=== PATIENT | female | born 1950 | race Caucasian/White ===

== ENCOUNTER 2019-11-06 08:50 | Observation (INO) ==
[~2019-11-06 08:50] MED LIST: Bacitracin 50,000 UNIT, Polymyxin B Sulfate 500,000 UNIT, Sodium Chloride IRRigation 1,... IR ONE
[2019-11-06] MEDS ORDERED: Albuterol 2.5 MG/3 ML NEBULIZER IH PRN (09:20)
[2019-11-06] MEDS ORDERED: CeFAZolin Syr 2,000MG/20 ML 2,000 MG/20 ML SYRINGE IVPB ONE (09:20)
[2019-11-06] MEDS ORDERED: Ringers Solution, Lactated 1,000 ML IVC SCH ×2 (09:30→13:12)
[2019-11-06] MEDS ORDERED: Famotidine 20 MG/2 ML VIAL IVP ONE (09:34)
[2019-11-06] MEDS ORDERED: *HR* Methadone 5 MG TABLET PO ONE (09:34)
[2019-11-06] MEDS ORDERED: Acetaminophen IV 1,000 MG/100 ML INFUS..BTL IVPB ONE (09:35)
[2019-11-06] MEDS ORDERED: *HR* Methadone 10 MG TABLET PO ONE (09:41)
[2019-11-06] MEDS ORDERED: Dexamethasone 4 MG/ML VIAL ONE (09:57)
[2019-11-06] MEDS ORDERED: Ondansetron 4 MG/2 ML VIAL ONE (09:57)
[2019-11-06] MEDS ORDERED: *HR* FentaNYL (PF) 100 MCG/2 ML VIAL ONE (09:57)
[2019-11-06] MEDS ORDERED: Lidocaine -MPF 2% 2 ML VIAL ONE (09:57)
[2019-11-06] MEDS ORDERED: *HR* Rocuronium Bromide 50 MG/5 ML VIAL ONE (09:57)
[2019-11-06] MEDS ORDERED: *HR* Succinylcholine 200 MG/10 ML VIAL IVP ONE (09:57)
[2019-11-06] MEDS ORDERED: *HR* Remifentanil 1 MG VIAL IVP ONE (09:58)
[2019-11-06] MEDS ORDERED: Lidocaine HCL 4 ML Topical Solution (Laryng-O-Jet Kit Sterile Pak) TP ONE (09:58)
[2019-11-06] MEDS ORDERED: *HR* Propofol 200 MG/20 ML VIAL IVP ONE (09:58)
[2019-11-06] MEDS ORDERED: *HR* Midazolam HCl 2 MG/2 ML VIAL ONE (09:58)
[2019-11-06] MEDS ORDERED: *HR* Promethazine 25 MG/ML VIAL IVP PRN (10:25)
[2019-11-06] MEDS ORDERED: Ondansetron 4 MG/2 ML VIAL IVP ONE (10:25)
[2019-11-06] MEDS ORDERED: *HR* OxyCODONE Immed Rel 5 MG TABLET PO PRN (10:25)
[2019-11-06] MEDS ORDERED: *HR* PHENYLEPHRINE 1,000 MCG/10 ML SYRINGE IVP ONE ×2 (10:40→10:42)
[2019-11-06] MEDS ORDERED: Acetaminophen 325 MG TABLET PO PRN (13:12)
[2019-11-06] MEDS ORDERED: Naloxone 0.4 MG/ML INJ IVP PRN (13:12)
[2019-11-06] MEDS ORDERED: Ondansetron 4 MG/2 ML VIAL IVP PRN (13:12)
[2019-11-06] MEDS: ceFAZolin 2,000 MG in 0.9 % Sodium Chloride 100 ML IVPB SCH (18:01)
[2019-11-06] MEDS: Metoprolol XL (24 HR) Succ 25 MG TAB.ER.24H PO SCH (21:22)
[2019-11-06] MEDS: lisinopriL 5 MG TABLET PO SCH (21:22)
[2019-11-06] MEDS: Baclofen 10 MG TABLET PO SCH (21:22)
[2019-11-06] MEDS: Ibuprofen 400 MG TABLET PO PRN (21:27)
[2019-11-07] MEDS: ceFAZolin 2,000 MG in 0.9 % Sodium Chloride 100 ML IVPB SCH (02:41)
[2019-11-07] MEDS: Baclofen 10 MG TABLET PO SCH ×2 (11:10→19:29)
[2019-11-07] MEDS: Cholecalciferol (D-3) 1,000 UNIT (25MCG) TABLET PO SCH (11:10)
[2019-11-07] MEDS: Multivit/Ca/Min/Fe/FA 1 TAB TABLET PO SCH (11:10)
[2019-11-07] MEDS: Aspirin Enteric Coated 81 MG Tablet PO SCH (11:10)
[2019-11-07] MEDS: *HR* OxyCODONE Immed Rel 5 MG TABLET PO PRN (18:01)
[2019-11-07] MEDS: Metoprolol XL (24 HR) Succ 25 MG TAB.ER.24H PO SCH (19:29)
[2019-11-07] MEDS: lisinopriL 5 MG TABLET PO SCH (19:30)
[2019-11-07] MEDS: *HR* HYDROcodone/Acet 5/325 mg TABLET PO PRN (20:48)
[2019-11-08] MEDS: *HR* OxyCODONE Immed Rel 5 MG TABLET PO PRN ×4 (05:14→20:05)
[2019-11-08] MEDS: Baclofen 10 MG TABLET PO SCH ×2 (09:20→20:05)
[2019-11-08] MEDS: Multivit/Ca/Min/Fe/FA 1 TAB TABLET PO SCH (09:24)
[2019-11-08] MEDS: Cholecalciferol (D-3) 1,000 UNIT (25MCG) TABLET PO SCH (09:24)
[2019-11-08] MEDS: Aspirin Enteric Coated 81 MG Tablet PO SCH (09:24)
[2019-11-08] MEDS: lisinopriL 5 MG TABLET PO SCH (20:05)
[2019-11-08] MEDS: Metoprolol XL (24 HR) Succ 25 MG TAB.ER.24H PO SCH (20:05)
[2019-11-08] MEDS: *HR* HYDROcodone/Acet 5/325 mg TABLET PO PRN (23:47)
[2019-11-09] MEDS: *HR* OxyCODONE Immed Rel 5 MG TABLET PO PRN ×2 (05:05→13:48)
[2019-11-09] MEDS: *HR* HYDROcodone/Acet 5/325 mg TABLET PO PRN ×2 (09:44→19:08)
[2019-11-09] MEDS: Baclofen 10 MG TABLET PO SCH ×2 (09:45→21:21)
[2019-11-09] MEDS: Multivit/Ca/Min/Fe/FA 1 TAB TABLET PO SCH (09:45)
[2019-11-09] MEDS: Cholecalciferol (D-3) 1,000 UNIT (25MCG) TABLET PO SCH (09:45)
[2019-11-09] MEDS: Aspirin Enteric Coated 81 MG Tablet PO SCH (09:45)
[2019-11-09] MEDS: lisinopriL 5 MG TABLET PO SCH (21:20)
[2019-11-09] MEDS: Metoprolol XL (24 HR) Succ 25 MG TAB.ER.24H PO SCH (21:20)
[2019-11-09] MEDS: Ibuprofen 400 MG TABLET PO PRN (21:21)
[2019-11-10] MEDS: *HR* OxyCODONE Immed Rel 5 MG TABLET PO PRN ×2 (01:35→10:04)
[2019-11-10] MEDS: *HR* HYDROcodone/Acet 5/325 mg TABLET PO PRN ×2 (05:02→13:16)
[2019-11-10] MEDS: Baclofen 10 MG TABLET PO SCH (07:58)
[2019-11-10] MEDS: Aspirin Enteric Coated 81 MG Tablet PO SCH (07:58)
[2019-11-10] MEDS: Cholecalciferol (D-3) 1,000 UNIT (25MCG) TABLET PO SCH (07:58)
[2019-11-10] MEDS: Multivit/Ca/Min/Fe/FA 1 TAB TABLET PO SCH (07:58)
[2019-11-10 10:37] VITALS: BP 123/58
== END 2019-11-10 14:05 ==
LOC: SAMDAY 08:50 → 3NENU 08:50
PROVIDERS: ADMIT Orthopaedic Surgery Orthopaedic Surgery of the Spine; ATTEND Orthopaedic Surgery Orthopaedic Surgery of the Spine

== ENCOUNTER 2021-08-20 08:46 | Inpatient (IN) ==
[~2021-08-20 08:46] MED LIST changes: +*HR* Phenylephrine 10 MG/ML VIAL ONE; +*HR* Rocuronium Bromide 50 MG/5 ML VIAL ONE; +*HR* Succinylcholine 200 MG/10 ML VIAL IVP ONE; -Bacitracin 50,000 UNIT, Polymyxin B Sulfate 500,000 UNIT, Sodium Chloride IRRigation 1,... IR ONE; +Lidocaine -MPF 2% 5 ML VIAL ONE; +Ondansetron 4 MG/2 ML VIAL ONE
[2021-08-20] MEDS ORDERED: Acetaminophen IV 1,000 MG/100 ML BAG IVPB ONE ×2 (08:47→10:07)
[2021-08-20] MEDS ORDERED: Famotidine 20 MG/2 ML VIAL IVP ONE (08:47)
[2021-08-20] MEDS ORDERED: *HR* Methadone 10 MG TABLET PO ONE (08:48)
[2021-08-20] MEDS ORDERED: Albumin Human 5% 37.5 GM/750 ML IV.SOLN ONE (09:04)
[2021-08-20] MEDS ORDERED: CeFAZolin Syr 2,000MG/20 ML 2,000 MG/20 ML SYRINGE IVPB ONE (09:33)
[2021-08-20] MEDS ORDERED: Ringers Solution, Lactated 1,000 ML IVC SCH (09:45)
[2021-08-20] MEDS ORDERED: *HR* Midazolam HCl 2 MG/2 ML VIAL ONE (09:49)
[2021-08-20] MEDS ORDERED: *HR* Propofol 200 MG/20 ML VIAL IVP ONE (09:49)
[2021-08-20] MEDS ORDERED: *HR* FentaNYL (PF) 100 MCG/2 ML VIAL ONE ×3 (09:50→12:00)
[2021-08-20] MEDS ORDERED: Heparin 1,000 UNITS/500 mL 500 ML ONE (10:08)
[2021-08-20] MEDS ORDERED: Lidocaine -MPF 2% 5 ML VIAL ONE ×2 (10:14→17:36)
[2021-08-20] MEDS ORDERED: Vancomycin 1,000 MG VIAL ONE ×2 (10:14→20:08)
[2021-08-20] MEDS ORDERED: Lacri-Lube 3.5 GM TUBE ONE (10:21)
[2021-08-20] MEDS ORDERED: Polymyxin B Sulfate 500,000 UNIT, Sodium Chloride IRRigation 1,000 ML IR ONE ×2 (10:55→15:00)
[2021-08-20] MEDS ORDERED: *HR* Magnesium Sulfate 1 GM/2 ML VIAL ONE (12:05)
[2021-08-20] MEDS ORDERED: *HR* HYDROmorphone PF 0.5 MG/0.5 ML SYRINGE IVP PRN (14:13)
[2021-08-20] MEDS ORDERED: Ondansetron 4 MG/2 ML VIAL IVP PRN (14:13)
[2021-08-20 17:48] LABS: ABG Base Excess -4 mEq/L (-2 to 3); ABG Chloride 109 mEq/L (98-107); ABG Glucose 162 mg/dL (60-95); ABG HCO3 22 mEq/L (21-27); ABG Ionized Calcium 1.26 mmol/L (1.15-1.35); ABG Oxygen Saturation 100 % (95-98); ABG PCO2 41 mmHg (35-45); ABG PH 7.33 pH Units (7.32-7.45); ABG PO2 252 mmHg (85-104); ABG TCO2 23 mEq/L (20-26)
[2021-08-20] MEDS ORDERED: *HR* Phenylephrine 10 MG/ML VIAL ONE (19:16)
[2021-08-20] MEDS ORDERED: Ondansetron 4 MG/2 ML VIAL ONE (20:38)
[2021-08-20] MEDS ORDERED: Naloxone 0.4 MG/ML INJ ONE (22:00)
[2021-08-20] MEDS: Naloxone 0.4 MG/ML INJ IVP PRN ×3 (22:07→22:14)
[2021-08-20 22:41] LABS: Hematocrit 29.3 % (35.3-44.9)
[2021-08-20 22:51] LABS: Hemoglobin 9.5 g/dL (11.5-15.4)
[2021-08-20 23:14] LABS: ABG Base Excess -5 mEq/L (-2 to 3); ABG HCO3 20 mEq/L (21-27); ABG Oxygen Saturation 99 % (95-98); ABG PCO2 34 mmHg (35-45); ABG PH 7.38 pH Units (7.32-7.45); ABG PO2 116 mmHg (85-104); ABG TCO2 21 mEq/L (20-26)
[2021-08-21] MEDS ORDERED: polyethylene glycoL 3350 17 GM POWD.PACK PO PRN (01:24)
[2021-08-21] MEDS ORDERED: Metoprolol XL (24 HR) Succ 25 MG TAB.ER.24H PO SCH (01:24)
[2021-08-21] MEDS ORDERED: Acetaminophen 325 MG TABLET PO PRN (01:24)
[2021-08-21] MEDS ORDERED: Ondansetron 4 MG/2 ML VIAL IVP PRN (01:24)
[2021-08-21] MEDS ORDERED: Naloxone 0.4 MG/ML INJ IVP PRN (01:24)
[2021-08-21] MEDS ORDERED: lisinopriL 5 MG TABLET PO SCH (01:45)
[2021-08-21] MEDS: Ringers Solution, Lactated 1,000 ML IVC SCH ×2 (02:12→13:29)
[2021-08-21] MEDS: Baclofen 10 MG TABLET PO SCH ×3 (02:37→20:33)
[2021-08-21] MEDS ORDERED: *HR* Dextrose 50 % in Water (Syg) 50 ML SYRINGE IVP PRN (02:52)
[2021-08-21] MEDS ORDERED: Dextrose Gel 15 GM/37.5 ML TUBE PO PRN ×2 (02:52)
[2021-08-21] MEDS ORDERED: D5% in Water 1,000 ML IVC PRN (02:52)
[2021-08-21] MEDS: CeFAZolin 2 GM/120 ML BAG IVPB SCH ×2 (02:53→09:44)
[2021-08-21 04:40] LABS: Basophils % 0.1 %; Hematocrit 31.4 % (35.3-44.9); Hemoglobin 10.5 g/dL (11.5-15.4); Immature Granulocytes % 0.5 % (0-4); Lymphocytes # 1.8 K/mcL (0.6-4.6); Lymphocytes % 13.1 %; Mean Corpuscular HGB Conc 33.4 g/dL (31.6-35.5); Mean Corpuscular Hemoglobin 29.5 pg (28.0-33.3); Mean Corpuscular Volume 88.2 fL (83.0-100.0); Mean Platelet Volume 9.8 fL (9.4-12.4); Monocytes # 0.7 K/mcL (0.0-1.3); Monocytes % 5.3 %; Platelet Count 168 K/mcL (140-400); Red Blood Count 3.56 M/mcL (3.82-4.97); Red Cell Distribution Width 15.2 % (11.5-14.5)
[2021-08-21 04:48] LABS: Neutrophils # 11.3 K/mcL (1.6-8.9)
[2021-08-21 04:54] LABS: BUN/Creatinine Ratio 24 (6-26); Blood Urea Nitrogen 19 mg/dL (8-23); Calcium 8.1 mg/dL (8.6-10.3); Carbon Dioxide 23 mEq/L (23-29); Chloride 111 mEq/L (98-107); Glucose 132 mg/dL (70-105); Osmolality,Calculated 292 (280-300); Potassium 4.2 mEq/L (3.5-5.1); Sodium 139 mEq/L (136-145); eGFR For African Americans > 60 (> 60); eGFR For Non-African Americans > 60 (> 60)
[2021-08-21] MEDS: Insulin LISPRO 300 UNITS/3 ML VIAL SUBQ SCH ×3 (09:39→16:11)
[2021-08-21] MEDS: Cholecalciferol (D-3) 1,000 UNIT (25MCG) TABLET PO SCH (09:39)
[2021-08-21] MEDS: Aspirin Enteric Coated 81 MG Tablet PO SCH (09:39)
[2021-08-21] MEDS: Multivit/Ca/Min/Fe/FA 1 TAB TABLET PO SCH (09:39)
[2021-08-21] MEDS: *HR* OxyCODONE Immed Rel 5 MG TABLET PO PRN (13:50)
[2021-08-21 18:12] LABS: Hematocrit 31.2 % (35.3-44.9); Hemoglobin 10.5 g/dL (11.5-15.4); Mean Corpuscular HGB Conc 33.7 g/dL (31.6-35.5); Mean Corpuscular Hemoglobin 29.2 pg (28.0-33.3); Mean Corpuscular Volume 86.7 fL (83.0-100.0); Mean Platelet Volume 9.8 fL (9.4-12.4); Platelet Count 186 K/mcL (140-400); Red Cell Distribution Width 15.7 % (11.5-14.5); White Blood Count 16.3 K/mcL (4.3-11.1)
[2021-08-21 18:33] LABS: BUN/Creatinine Ratio 29 (6-26); Blood Urea Nitrogen 22 mg/dL (8-23); Calcium 8.6 mg/dL (8.6-10.3); Carbon Dioxide 24 mEq/L (23-29); Chloride 108 mEq/L (98-107); Glucose 131 mg/dL (70-105); Osmolality,Calculated 291 (280-300); Potassium 3.9 mEq/L (3.5-5.1); Sodium 138 mEq/L (136-145); eGFR For African Americans > 60 (> 60); eGFR For Non-African Americans > 60 (> 60)
[2021-08-21] MEDS: Metoprolol XL (24 HR) Succ 25 MG TAB.ER.24H PO SCH ×2 (18:38→20:32)
[2021-08-21] MEDS: *HR* HYDROcodone/Acet 5/325 mg TABLET PO PRN (18:39)
[2021-08-22] MEDS: Ringers Solution, Lactated 1,000 ML IVC SCH (00:18)
[2021-08-22] MEDS: Metoprolol XL (24 HR) Succ 25 MG TAB.ER.24H PO SCH ×2 (08:34→21:02)
[2021-08-22] MEDS: Baclofen 10 MG TABLET PO SCH ×2 (08:34→21:02)
[2021-08-22] MEDS: Cholecalciferol (D-3) 1,000 UNIT (25MCG) TABLET PO SCH (08:35)
[2021-08-22] MEDS: Multivit/Ca/Min/Fe/FA 1 TAB TABLET PO SCH (08:35)
[2021-08-22] MEDS: Aspirin Enteric Coated 81 MG Tablet PO SCH (08:35)
[2021-08-22] MEDS: Insulin LISPRO 300 UNITS/3 ML VIAL SUBQ SCH ×3 (08:36→16:47)
[2021-08-22 09:36] LABS: Hematocrit 27.2 % (35.3-44.9); Hemoglobin 9.2 g/dL (11.5-15.4)
[2021-08-22 09:55] LABS: BUN/Creatinine Ratio 30 (6-26); Blood Urea Nitrogen 19 mg/dL (8-23); Calcium 8.3 mg/dL (8.6-10.3); Carbon Dioxide 25 mEq/L (23-29); Chloride 106 mEq/L (98-107); Glucose 121 mg/dL (70-105); Osmolality,Calculated 288 (280-300); Potassium 3.9 mEq/L (3.5-5.1); Sodium 137 mEq/L (136-145); eGFR For African Americans > 60 (> 60); eGFR For Non-African Americans > 60 (> 60)
[2021-08-22] MEDS: *HR* OxyCODONE Immed Rel 5 MG TABLET PO PRN ×2 (10:46→16:45)
[2021-08-22] MEDS: *HR* HYDROcodone/Acet 5/325 mg TABLET PO PRN (23:07)
[2021-08-23] MEDS: *HR* OxyCODONE Immed Rel 5 MG TABLET PO PRN ×3 (06:37→19:44)
[2021-08-23 07:17] LABS: Basophils % 0.2 %; Eosinophils % 0.4 %; Hemoglobin 8.4 g/dL (11.5-15.4); Immature Granulocytes % 0.4 % (0-4); Lymphocytes # 2.5 K/mcL (0.6-4.6); Mean Corpuscular HGB Conc 32.3 g/dL (31.6-35.5); Mean Corpuscular Hemoglobin 28.9 pg (28.0-33.3); Mean Corpuscular Volume 89.3 fL (83.0-100.0); Mean Platelet Volume 10.1 fL (9.4-12.4); Monocytes # 0.9 K/mcL (0.0-1.3); Monocytes % 8.3 %; Neutrophils # 7.5 K/mcL (1.6-8.9); Platelet Count 166 K/mcL (140-400); Red Blood Count 2.91 M/mcL (3.82-4.97); Red Cell Distribution Width 15.2 % (11.5-14.5); Segmented Neutrophils % 67.7 %
[2021-08-23] MEDS: Insulin LISPRO 300 UNITS/3 ML VIAL SUBQ SCH ×3 (08:40→18:10)
[2021-08-23] MEDS: *HR* HYDROcodone/Acet 5/325 mg TABLET PO PRN (09:38)
[2021-08-23] MEDS: Metoprolol XL (24 HR) Succ 25 MG TAB.ER.24H PO SCH ×2 (09:38→20:25)
[2021-08-23] MEDS: Cholecalciferol (D-3) 1,000 UNIT (25MCG) TABLET PO SCH (09:39)
[2021-08-23] MEDS: Baclofen 10 MG TABLET PO SCH ×2 (09:39→20:25)
[2021-08-23] MEDS: Multivit/Ca/Min/Fe/FA 1 TAB TABLET PO SCH (09:39)
[2021-08-23] MEDS: Aspirin Enteric Coated 81 MG Tablet PO SCH (09:39)
[2021-08-23 10:38] LABS: Estimated Average Glucose 111 mg/dl; Hemoglobin A1C 5.5 %
[2021-08-23] MEDS: *HR* Heparin 5,000 UNIT/ML VIAL SQ SCH (18:43)
[2021-08-23] MEDS ORDERED: Ketorolac 30 MG/ML VIAL IVP ONE (21:00)
[2021-08-24] MEDS: *HR* OxyCODONE Immed Rel 5 MG TABLET PO PRN ×2 (00:16→08:07)
[2021-08-24 03:49] LABS: Hematocrit 22.9 % (35.3-44.9); Hemoglobin 7.7 g/dL (11.5-15.4)
[2021-08-24] MEDS: *HR* Heparin 5,000 UNIT/ML VIAL SQ SCH (06:47)
[2021-08-24] MEDS: Metoprolol XL (24 HR) Succ 25 MG TAB.ER.24H PO SCH ×2 (08:06→21:07)
[2021-08-24] MEDS: Cholecalciferol (D-3) 1,000 UNIT (25MCG) TABLET PO SCH (08:06)
[2021-08-24] MEDS: Baclofen 10 MG TABLET PO SCH ×2 (08:06→21:07)
[2021-08-24] MEDS: Multivit/Ca/Min/Fe/FA 1 TAB TABLET PO SCH (08:07)
[2021-08-24] MEDS: Aspirin Enteric Coated 81 MG Tablet PO SCH (08:07)
[2021-08-24] MEDS ORDERED: *HR* HYDROcodone/Acet 5/325 mg TABLET PO PRN (10:38)
[2021-08-24] MEDS: Insulin LISPRO 300 UNITS/3 ML VIAL SUBQ SCH ×2 (15:04→17:23)
[2021-08-24] MEDS: *HR* HYDROcodone/Acet 5/325 mg TABLET PO PRN (17:22)
[2021-08-24 21:24] LABS: Hematocrit 24.7 % (35.3-44.9)
[2021-08-25] MEDS: *HR* HYDROcodone/Acet 5/325 mg TABLET PO PRN ×3 (01:06→20:30)
[2021-08-25 04:59] LABS: Basophils % 0.4 %; Eosinophils # 0.1 K/mcL (0.0-0.6); Eosinophils % 1.3 %; Hematocrit 23.9 % (35.3-44.9); Hemoglobin 7.9 g/dL (11.5-15.4); Immature Granulocytes % 0.4 % (0-4); Lymphocytes # 3.2 K/mcL (0.6-4.6); Lymphocytes % 37.8 %; Mean Corpuscular HGB Conc 33.1 g/dL (31.6-35.5); Mean Corpuscular Hemoglobin 29.9 pg (28.0-33.3); Mean Corpuscular Volume 90.5 fL (83.0-100.0); Mean Platelet Volume 10.5 fL (9.4-12.4); Monocytes # 0.6 K/mcL (0.0-1.3); Monocytes % 7.1 %; Neutrophils # 4.5 K/mcL (1.6-8.9); Platelet Count 181 K/mcL (140-400); Red Blood Count 2.64 M/mcL (3.82-4.97); Red Cell Distribution Width 15.4 % (11.5-14.5); White Blood Count 8.5 K/mcL (4.3-11.1)
[2021-08-25 05:13] LABS: Iron 21 mcg/dL (50-170)
[2021-08-25 05:30] LABS: Ferritin 72 ng/mL (10-120)
[2021-08-25] MEDS: Baclofen 10 MG TABLET PO SCH ×2 (08:04→20:30)
[2021-08-25] MEDS: Cholecalciferol (D-3) 1,000 UNIT (25MCG) TABLET PO SCH (08:04)
[2021-08-25] MEDS: Multivit/Ca/Min/Fe/FA 1 TAB TABLET PO SCH (08:05)
[2021-08-25] MEDS: Metoprolol XL (24 HR) Succ 25 MG TAB.ER.24H PO SCH ×2 (08:05→20:30)
[2021-08-25] MEDS: Aspirin Enteric Coated 81 MG Tablet PO SCH (08:05)
[2021-08-25] MEDS: Insulin LISPRO 300 UNITS/3 ML VIAL SUBQ SCH ×3 (08:05→16:58)
[2021-08-25] MEDS: Iron Sucrose Complex 200 MG in 0.9 % Sodium Chloride 100 ML IVPB SCH (10:32)
[2021-08-25 10:50] LABS: % Iron Saturation 9 % (15-50); Transferrin 169 mg/dL (203-362)
[2021-08-26 04:35] LABS: Hemoglobin 9.1 g/dL (11.5-15.4)
[2021-08-26] MEDS: Insulin LISPRO 300 UNITS/3 ML VIAL SUBQ SCH ×3 (08:08→15:40)
[2021-08-26] MEDS: Aspirin Enteric Coated 81 MG Tablet PO SCH (08:14)
[2021-08-26] MEDS: Iron Sucrose Complex 200 MG in 0.9 % Sodium Chloride 100 ML IVPB SCH (08:14)
[2021-08-26] MEDS: Cholecalciferol (D-3) 1,000 UNIT (25MCG) TABLET PO SCH (08:14)
[2021-08-26] MEDS: Baclofen 10 MG TABLET PO SCH (08:14)
[2021-08-26] MEDS: Multivit/Ca/Min/Fe/FA 1 TAB TABLET PO SCH (08:15)
[2021-08-26] MEDS: Metoprolol XL (24 HR) Succ 25 MG TAB.ER.24H PO SCH (08:15)
[2021-08-26 12:25] VITALS: TEMP 97.6; O2SAT 94
[2021-08-26] MEDS: *HR* HYDROcodone/Acet 5/325 mg TABLET PO PRN (12:38)
[2021-08-26 15:36] VITALS: BP 111/65; PULSE 86
[2021-08-26 17:42] LABS: Influenza A PCR Negative (Negative); Influenza B PCR Negative (Negative); Resp. Syncytial Virus PCR Negative (Negative)
[2021-08-26 18:08] LABS: SARS-CoV-2 by PCR (In House) Negative (Negative)
== END 2021-08-26 18:56 | DRG 459 ==
LOC: 2NNU 08:46 → SDCAOSI 08:46 → 2NNU 08-21 01:15 → 4WAOSI 08-21 14:19
PROVIDERS: ADMIT Orthopaedic Surgery Orthopaedic Surgery of the Spine; ATTEND Orthopaedic Surgery Orthopaedic Surgery of the Spine

== ENCOUNTER 2021-10-03 12:09 | Observation (INO) ==
[2021-10-03] MEDS ORDERED: MOM Conc 10 ML UD.LIQ PO PRN (14:18)
[2021-10-03] MEDS ORDERED: Naloxone 0.4 MG/ML INJ IVP PRN (14:18)
[2021-10-03] MEDS ORDERED: Ondansetron 4 MG/2 ML VIAL IVP PRN (14:18)
[2021-10-03] MEDS ORDERED: Acetaminophen 325 MG TABLET PO PRN (14:18)
[2021-10-03 14:33] LABS: Basophils # 0.1 K/mcL (0.0-0.2); Basophils % 1.2 %; Eosinophils # 0.3 K/mcL (0.0-0.6); Hematocrit 38.2 % (35.3-44.9); Hemoglobin 12.5 g/dL (11.5-15.4); Immature Granulocytes % 0.2 % (0-4); Lymphocytes # 2.4 K/mcL (0.6-4.6); Lymphocytes % 40.2 %; Mean Corpuscular HGB Conc 32.7 g/dL (31.6-35.5); Mean Corpuscular Hemoglobin 31.1 pg (28.0-33.3); Mean Platelet Volume 9.7 fL (9.4-12.4); Monocytes # 0.5 K/mcL (0.0-1.3); Monocytes % 8.7 %; Neutrophils # 2.7 K/mcL (1.6-8.9); Platelet Count 192 K/mcL (140-400); Red Blood Count 4.02 M/mcL (3.82-4.97); Red Cell Distribution Width 13.8 % (11.5-14.5); Segmented Neutrophils % 44.7 %
[2021-10-03 14:53] LABS: BUN/Creatinine Ratio 22 (6-26); Blood Urea Nitrogen 14 mg/dL (8-23); Calcium 9.5 mg/dL (8.6-10.3); Carbon Dioxide 26 mEq/L (23-29); Chloride 107 mEq/L (98-107); Glucose 92 mg/dL (70-105); Osmolality,Calculated 288 (280-300); Phosphorous 3.6 mg/dL (2.7-4.5); Potassium 4.2 mEq/L (3.5-5.1); Sodium 139 mEq/L (136-145); eGFR For African Americans > 60 (> 60); eGFR For Non-African Americans > 60 (> 60)
[2021-10-03] MEDS: *HR* HYDROcodone/Acet 5/325 mg TABLET PO PRN (18:22)
[2021-10-03] MEDS: Metoprolol XL (24 HR) Succ 25 MG TAB.ER.24H PO SCH (23:15)
[2021-10-04] MEDS: Aspirin Enteric Coated 81 MG Tablet PO SCH (10:09)
[2021-10-04] MEDS: Metoprolol XL (24 HR) Succ 25 MG TAB.ER.24H PO SCH ×2 (10:09→20:22)
[2021-10-04] MEDS: Gabapentin 100 MG CAPSULE PO SCH ×2 (17:45→20:24)
[2021-10-04] MEDS: *HR* HYDROcodone/Acet 5/325 mg TABLET PO PRN (20:22)
[2021-10-04] MEDS: Baclofen 10 MG TABLET PO PRN (20:22)
[2021-10-04] MEDS: Melatonin 3 MG TABLET PO PRN (20:22)
[2021-10-05] MEDS: Magnesium Oxide 400 MG TABLET PO SCH (11:12)
[2021-10-05] MEDS: Aspirin Enteric Coated 81 MG Tablet PO SCH (11:12)
[2021-10-05] MEDS: Gabapentin 100 MG CAPSULE PO SCH ×2 (11:12→18:00)
[2021-10-05] MEDS: Metoprolol XL (24 HR) Succ 25 MG TAB.ER.24H PO SCH ×2 (11:13→20:37)
[2021-10-05] MEDS: *HR* HYDROcodone/Acet 5/325 mg TABLET PO PRN (20:37)
[2021-10-05] MEDS: Baclofen 10 MG TABLET PO PRN (20:37)
[2021-10-06] MEDS: Gabapentin 100 MG CAPSULE PO SCH ×4 (02:10→20:08)
[2021-10-06] MEDS: *HR* HYDROcodone/Acet 5/325 mg TABLET PO PRN (02:15)
[2021-10-06] MEDS: Aspirin Enteric Coated 81 MG Tablet PO SCH (07:31)
[2021-10-06] MEDS: Metoprolol XL (24 HR) Succ 25 MG TAB.ER.24H PO SCH ×2 (07:31→20:08)
[2021-10-06] MEDS: Magnesium Oxide 400 MG TABLET PO SCH (07:31)
[2021-10-06] MEDS: Baclofen 10 MG TABLET PO PRN (20:08)
[2021-10-07] MEDS: Baclofen 10 MG TABLET PO PRN ×2 (09:00→20:45)
[2021-10-07] MEDS: Aspirin Enteric Coated 81 MG Tablet PO SCH (09:00)
[2021-10-07] MEDS: Gabapentin 100 MG CAPSULE PO SCH ×3 (09:00→20:43)
[2021-10-07] MEDS: Metoprolol XL (24 HR) Succ 25 MG TAB.ER.24H PO SCH ×2 (09:00→20:44)
[2021-10-07] MEDS: Magnesium Oxide 400 MG TABLET PO SCH (09:00)
[2021-10-07] MEDS: Melatonin 3 MG TABLET PO PRN (20:45)
[2021-10-07] MEDS: *HR* HYDROcodone/Acet 5/325 mg TABLET PO PRN (20:45)
[2021-10-07] MEDS ORDERED: Methyl Salicylate/Menthol 57 APPL/57 GM TUBE TP PRN (21:02)
[2021-10-07] MEDS ORDERED: Methyl Salicylate/Menthol 85 APPL/85 GM TUBE TP PRN (21:30)
[2021-10-08] MEDS: Aspirin Enteric Coated 81 MG Tablet PO SCH (08:33)
[2021-10-08] MEDS: Gabapentin 100 MG CAPSULE PO SCH ×3 (08:33→20:29)
[2021-10-08] MEDS: Magnesium Oxide 400 MG TABLET PO SCH (08:33)
[2021-10-08] MEDS: Baclofen 10 MG TABLET PO PRN (08:33)
[2021-10-08] MEDS: Metoprolol XL (24 HR) Succ 25 MG TAB.ER.24H PO SCH ×2 (08:34→20:29)
[2021-10-08] MEDS: Melatonin 3 MG TABLET PO PRN (20:29)
[2021-10-08] MEDS: *HR* HYDROcodone/Acet 5/325 mg TABLET PO PRN (20:30)
[2021-10-09 03:37] LABS: Hematocrit 37.1 % (35.3-44.9); Hemoglobin 12.6 g/dL (11.5-15.4); Mean Corpuscular Hemoglobin 31.3 pg (28.0-33.3); Mean Corpuscular Volume 92.1 fL (83.0-100.0); Mean Platelet Volume 9.9 fL (9.4-12.4); Platelet Count 235 K/mcL (140-400); Red Blood Count 4.03 M/mcL (3.82-4.97); White Blood Count 7.5 K/mcL (4.3-11.1)
[2021-10-09 04:49] LABS: BUN/Creatinine Ratio 46 (6-26); Blood Urea Nitrogen 31 mg/dL (8-23); Calcium 9.3 mg/dL (8.6-10.3); Carbon Dioxide 21 mEq/L (23-29); Chloride 106 mEq/L (98-107); Glucose 89 mg/dL (70-105); Magnesium 1.9 mg/dL (1.6-2.6); Osmolality,Calculated 286 (280-300); Potassium 4.1 mEq/L (3.5-5.1); Sodium 135 mEq/L (136-145); eGFR For African Americans > 60 (> 60); eGFR For Non-African Americans > 60 (> 60)
[2021-10-09] MEDS: Aspirin Enteric Coated 81 MG Tablet PO SCH (07:38)
[2021-10-09] MEDS: Gabapentin 100 MG CAPSULE PO SCH ×3 (07:38→20:16)
[2021-10-09] MEDS: Metoprolol XL (24 HR) Succ 25 MG TAB.ER.24H PO SCH ×2 (07:38→20:16)
[2021-10-09] MEDS: Magnesium Oxide 400 MG TABLET PO SCH (07:38)
[2021-10-09] MEDS: Baclofen 10 MG TABLET PO PRN ×2 (07:51→20:17)
[2021-10-10] MEDS: Metoprolol XL (24 HR) Succ 25 MG TAB.ER.24H PO SCH ×2 (07:58→20:38)
[2021-10-10] MEDS: Aspirin Enteric Coated 81 MG Tablet PO SCH (07:58)
[2021-10-10] MEDS: Magnesium Oxide 400 MG TABLET PO SCH (07:58)
[2021-10-10] MEDS: Gabapentin 100 MG CAPSULE PO SCH ×3 (07:58→20:38)
[2021-10-10] MEDS: Baclofen 10 MG TABLET PO PRN (20:41)
[2021-10-11] MEDS: Baclofen 10 MG TABLET PO PRN ×2 (05:52→19:22)
[2021-10-11] MEDS: Gabapentin 100 MG CAPSULE PO SCH ×3 (08:14→19:22)
[2021-10-11] MEDS: Metoprolol XL (24 HR) Succ 25 MG TAB.ER.24H PO SCH ×2 (08:14→19:22)
[2021-10-11] MEDS: Aspirin Enteric Coated 81 MG Tablet PO SCH (08:14)
[2021-10-11] MEDS: Magnesium Oxide 400 MG TABLET PO SCH (08:14)
[2021-10-12] MEDS: Aspirin Enteric Coated 81 MG Tablet PO SCH (09:03)
[2021-10-12] MEDS: Magnesium Oxide 400 MG TABLET PO SCH (09:03)
[2021-10-12] MEDS: Metoprolol XL (24 HR) Succ 25 MG TAB.ER.24H PO SCH ×2 (09:03→21:31)
[2021-10-12] MEDS: Gabapentin 100 MG CAPSULE PO SCH ×3 (09:03→21:33)
[2021-10-12] MEDS: Baclofen 10 MG TABLET PO PRN (21:30)
[2021-10-12] MEDS: Melatonin 3 MG TABLET PO PRN (21:32)
[2021-10-13] MEDS: Aspirin Enteric Coated 81 MG Tablet PO SCH (09:06)
[2021-10-13] MEDS: Magnesium Oxide 400 MG TABLET PO SCH (09:06)
[2021-10-13] MEDS: Gabapentin 100 MG CAPSULE PO SCH ×3 (09:06→20:20)
[2021-10-13] MEDS: Metoprolol XL (24 HR) Succ 25 MG TAB.ER.24H PO SCH ×2 (09:06→20:20)
[2021-10-13] MEDS: Melatonin 3 MG TABLET PO PRN (20:22)
[2021-10-13] MEDS: Baclofen 10 MG TABLET PO PRN (20:22)
[2021-10-14] MEDS: Metoprolol XL (24 HR) Succ 25 MG TAB.ER.24H PO SCH ×2 (08:17→20:41)
[2021-10-14] MEDS: Gabapentin 100 MG CAPSULE PO SCH ×3 (08:17→20:41)
[2021-10-14] MEDS: Aspirin Enteric Coated 81 MG Tablet PO SCH (08:18)
[2021-10-14] MEDS: Magnesium Oxide 400 MG TABLET PO SCH (08:18)
[2021-10-14] MEDS: Baclofen 10 MG TABLET PO PRN (20:41)
[2021-10-14] MEDS: *HR* HYDROcodone/Acet 5/325 mg TABLET PO PRN (20:41)
[2021-10-14] MEDS: Melatonin 3 MG TABLET PO PRN (20:42)
[2021-10-15] MEDS: Gabapentin 100 MG CAPSULE PO SCH ×3 (09:00→20:30)
[2021-10-15] MEDS: Magnesium Oxide 400 MG TABLET PO SCH (09:00)
[2021-10-15] MEDS: Aspirin Enteric Coated 81 MG Tablet PO SCH (09:00)
[2021-10-15] MEDS: Metoprolol XL (24 HR) Succ 25 MG TAB.ER.24H PO SCH ×2 (09:01→20:30)
[2021-10-15] MEDS: Melatonin 3 MG TABLET PO PRN (20:30)
[2021-10-15] MEDS: Baclofen 10 MG TABLET PO PRN (20:30)
[2021-10-16] MEDS: Metoprolol XL (24 HR) Succ 25 MG TAB.ER.24H PO SCH ×2 (08:12→19:30)
[2021-10-16] MEDS: Gabapentin 100 MG CAPSULE PO SCH ×3 (08:12→19:30)
[2021-10-16] MEDS: Aspirin Enteric Coated 81 MG Tablet PO SCH (08:13)
[2021-10-16] MEDS: Magnesium Oxide 400 MG TABLET PO SCH (08:13)
[2021-10-16] MEDS: Baclofen 10 MG TABLET PO PRN (19:32)
[2021-10-17] MEDS: Aspirin Enteric Coated 81 MG Tablet PO SCH (08:16)
[2021-10-17] MEDS: Metoprolol XL (24 HR) Succ 25 MG TAB.ER.24H PO SCH ×2 (08:16→19:42)
[2021-10-17] MEDS: Magnesium Oxide 400 MG TABLET PO SCH (08:16)
[2021-10-17] MEDS: Gabapentin 100 MG CAPSULE PO SCH ×3 (08:16→19:48)
[2021-10-17] MEDS: Baclofen 10 MG TABLET PO PRN (19:45)
[2021-10-18] MEDS: Aspirin Enteric Coated 81 MG Tablet PO SCH (08:35)
[2021-10-18] MEDS: Gabapentin 100 MG CAPSULE PO SCH ×3 (08:35→21:33)
[2021-10-18] MEDS: Metoprolol XL (24 HR) Succ 25 MG TAB.ER.24H PO SCH ×2 (08:35→21:32)
[2021-10-18] MEDS: Magnesium Oxide 400 MG TABLET PO SCH (08:35)
[2021-10-18] MEDS: Baclofen 10 MG TABLET PO PRN (21:32)
[2021-10-18] MEDS: Melatonin 3 MG TABLET PO PRN (21:33)
[2021-10-19] MEDS: Gabapentin 100 MG CAPSULE PO SCH ×3 (07:16→21:26)
[2021-10-19] MEDS: Aspirin Enteric Coated 81 MG Tablet PO SCH (07:16)
[2021-10-19] MEDS: Metoprolol XL (24 HR) Succ 25 MG TAB.ER.24H PO SCH ×2 (07:16→21:25)
[2021-10-19] MEDS: Magnesium Oxide 400 MG TABLET PO SCH (07:16)
[2021-10-19] MEDS: Baclofen 10 MG TABLET PO PRN (21:25)
[2021-10-19] MEDS: Melatonin 3 MG TABLET PO PRN (21:25)
[2021-10-20 07:26] VITALS: BP 105/64; PULSE 74; TEMP 97.5; O2SAT 94
[2021-10-20] MEDS: Aspirin Enteric Coated 81 MG Tablet PO SCH (07:44)
[2021-10-20] MEDS: Gabapentin 100 MG CAPSULE PO SCH (07:44)
[2021-10-20] MEDS: Magnesium Oxide 400 MG TABLET PO SCH (07:44)
[2021-10-20] MEDS: Metoprolol XL (24 HR) Succ 25 MG TAB.ER.24H PO SCH (07:44)
== END 2021-10-20 09:50 ==
LOC: 4WAOSI 12:09 → EMEROOARM 12:09 → SUATTDRO 14:01 → 4WAOSI 14:35 → 3BNU 10-06 12:50
PROVIDERS: ADMIT Pharmacist; ATTEND Internal Medicine